=== PATIENT | female | born 1985 | race Caucasian/White ===

== ENCOUNTER 2020-09-21 11:06 | Emergency (ER) | payer MEDICAID ==
[~2020-09-21] VITALS: Ht 157.5 cm; Wt 77.0 kg
[2020-09-21] MEDS ORDERED: IBUPROFEN 600MG TABLET PO STA (11:42)
[2020-09-21] MEDS ORDERED: IBUP-2029 MT (13:03)
[2020-09-21 13:30] VITALS: BP 144/92
== END 2020-09-21 13:31 | disposition home or self-care (01) ==
LOC: ER 12:42
DX: S93.602A Unspecified sprain of left foot, initial encounter (principal); M54.5 Low back pain; W10.9XXA Fall (on) (from) unspecified stairs and steps, initial encounter; Y93.89 Activity, other specified; Y92.89 Other specified places as the place of occurrence of the external cause; Y99.8 Other external cause status
CPT/HCPCS: 73610; 73630; 81025; 99284